=== PATIENT | male | born 1955 | race Caucasian/White ===

== ENCOUNTER → 2017-08-14 | Outpatient (CLI) | payer BC ==
[2017-08-15 19:15] LABS: Sodium, Urine 96 mmol/L (20-110)
== END | disposition home or self-care (01) ==
LOC: LAB 08:04
PROVIDERS: Physician Assistant
DX: R35.0 Frequency of micturition (principal)
CPT/HCPCS: 81050; 84300

== ENCOUNTER 2020-12-25 07:20 | Day surgery (SDC) | payer BC ==
[~2020-12-25] VITALS: Ht 175.3 cm; Wt 82.6 kg
[~2020-12-25 07:20] MED LIST: Acetaminophen650 M1 PO; MELO7.5 PO
[2020-12-25] MEDS ORDERED: GABA300 (08:14)
== END 2020-12-25 09:31 | disposition home or self-care (01) ==
LOC: ORSCSDS 07:20
PROVIDERS: Student in an Organized Health Care Education/Training Program
PROC: 0DBN8ZX Excision of Sigmoid Colon, Via Natural or Artificial Opening Endoscopic, Diagnostic (ICD-10-PCS; principal; 2020-12-25 09:00)
DX: Z12.11 Encounter for screening for malignant neoplasm of colon (principal); D12.5 Benign neoplasm of sigmoid colon; E78.5 Hyperlipidemia, unspecified; F17.210 Nicotine dependence, cigarettes, uncomplicated; Z79.899 Other long term (current) drug therapy
CPT/HCPCS: 88305; J2704; J7120